=== PATIENT | female | born 1955 | race Caucasian/White ===

== ENCOUNTER 2021-07-04 19:32 | Emergency (ER) | payer BC, MEDICAID ==
[~2021-07-04] VITALS: Ht 157.5 cm; Wt 75.0 kg
[2021-07-04 19:42] VITALS: BP 180/74
[2021-07-04] MEDS ORDERED: IBUP-2029 MT (23:14)
[2021-07-04] MEDS ORDERED: TRAM50TA MT (23:14)
[2021-07-04] MEDS ORDERED: TRAM50TA3 MT (23:22)
== END 2021-07-04 23:50 | disposition home or self-care (01) ==
LOC: ER 19:44
DX: I83.892 Varicose veins of left lower extremity with other complications (principal); E11.9 Type 2 diabetes mellitus without complications; I10 Essential (primary) hypertension
CPT/HCPCS: 93971; 99284